=== PATIENT | female | born 1950 | race Hispanic/Latino ===

== ENCOUNTER 2024-01-02 14:00 | Emergency (ER) | payer MEDICARE ==
[~2024-01-02] VITALS: Ht 157.5 cm; Wt 61.2 kg
[2024-01-02 17:18] VITALS: PULSE 70; RESP 18; TEMP 97.7
[2024-01-02 17:24] VITALS: BP 132/74; PULSE 65; RESP 18; TEMP 97.7; O2SAT 99
== END 2024-01-02 17:29 | disposition home or self-care (01) ==
LOC: ER 14:06
DX: M25.511 Pain in right shoulder (principal); W18.2XXA Fall in (into) shower or empty bathtub, initial encounter; Y93.E1 Activity, personal bathing and showering; Y92.89 Other specified places as the place of occurrence of the external cause; I10 Essential (primary) hypertension; E11.9 Type 2 diabetes mellitus without complications; E78.5 Hyperlipidemia, unspecified
CPT/HCPCS: 99284